=== PATIENT | female | born 1970 | race Caucasian/White ===

== ENCOUNTER 2022-04-11 16:08 | Emergency (ER) | payer MEDICARE ==
[~2022-04-11] VITALS: Ht 177.8 cm; Wt 104.3 kg
[~2022-04-11 16:08] MED LIST: Ativan1 MG PO; LAMO100 PO; LEVSOD100 PO; LITH300C PO; LITH300ER PO; Lamictal100 MG PO; Lamictal150 MG PO; Synthroid100 MCG PO; VENL150ER PO; VENL75ER PO; VENLAFAXINE HC150 MG PO
[2022-04-11] MEDS ORDERED: EFFEXOR XR150 MG PO (16:30)
[2022-04-11] MEDS ORDERED: SUBVENITE150 MG PO (16:30)
[2022-04-11] MEDS ORDERED: LITH300C PO (16:30)
== END 2022-04-11 16:26 | disposition home or self-care (01) ==
LOC: ER 16:08
DX: Z76.0 Encounter for issue of repeat prescription (principal); F31.9 Bipolar disorder, unspecified; Z79.899 Other long term (current) drug therapy
CPT/HCPCS: 99281